=== PATIENT | female | born 1955 | race Caucasian/White ===

== ENCOUNTER → 2017-02-03 | Outpatient (CLI) | payer MEDICARE, OTHER ==
--- NOTE | 2017-02-03 09:23 | RADRPT ---
PROCEDURE: Ultrasound of the abdomen and retroperitoneum. CLINICAL INDICATION: Elevated transaminases TECHNIQUE: Multiple real-time longitudinal and transverse images of the abdomen were acquired util izing a curved array transducer. Images were reviewed on a high-resolution PACS workstation. COMPARISON: None FINDINGS: The liver demonstrates increased echogenicity consistent with fatty infiltration. The liver is dori l in size. No hepatic mass is identified. There is no evidence of intra or extrahepatic ductal dila tation. The common bile duct measures 5.5 mm in maximal dimension. No gallstones or gallbladder wal l thickening is seen. The visualized portions of the pancreas are unremarkable with obscuration of the tail of the pancrea s. No free fluid is identified. The spleen is normal and measures 10.3 cm. The kidneys are without calcifications or hydronephrosis. The right kidney measures 10.9 cm, and t he left kidney measures 10.6 cm. The visualized portions of the aorta and inferior vena cava are unremarkable. IMPRESSION: 1. Fatty infiltration of the liver. 2. Otherwise unremarkable ultrasound of the abdomen and retroperitoneum. RPTAT: KK .Kristian Cheek MD, MD Date Time Electronically viewed and signed by .Kristian Cheek MD, MD on 02/03/2017 09:22 .B/
== END | disposition home or self-care (01) ==
LOC: U/S 08:42
PROVIDERS: ATTEND Internal Medicine
DX: R74.0 Nonspecific elevation of levels of transaminase and lactic acid dehydrogenase [LDH] (principal)
CPT/HCPCS: 76700